=== PATIENT | male | born 1960 | race Caucasian/White ===

== ENCOUNTER → 2019-05-11 | Outpatient (CLI) | payer BC ==
--- NOTE | 2019-05-11 19:00 | ECHOF ---
Referral Reason:atypical chest pain R07.9 MEASUREMENTS -------- HEIGHT: 182.9 cm WEIGHT: 111.1 kg BP: 145/93 RVIDd: 3.4 cm (< 3.3) IVSd: 1.4 cm (0.6 - 1.1) LVIDd: 4.2 cm (3.9 - 5.3) LVPWd: 1.6 cm (0.6 - 1.1) IVSs: 1.8 cm LVIDs: 2.9 cm LVPWs: 2.1 cm LA Diam: 3.4 cm (2.7 - 3.8) LAESV Index (A-L): 20.39 ml/m Ao Diam: 4.2 cm (2.0 - 3.7) AV Cusp: 2.5 cm (1.5 - 2.6) MV EXCURSION: 19.913 mm (> 18.000) MV EF SLOPE: 110 mm/s (70 - 150) EPSS: 1.0 cm MV E Ezequiel: 0.75 m/s MV DecT: 330 ms MV A Ezequiel: 0.74 m/s MV E/A Ratio: 1.02 RAP: 5.00 mmHg RVSP: 28.48 mmHg FINDINGS -------- Sinus rhythm. This was a technically adequate study. The left ventricular size is normal. There is moderate concentric left ventricular hypertrophy. O verall left ventricular systolic function is normal with, an EF between 60 - 65 %. The right ventricle is mildly enlarged. Normal LA size by volume 22+/-6 ml/m2. The right atrium is normal in size. Interatrial and interventricular septum intact. The aortic valve is trileaflet and appears structurally normal. The mitral valve is normal. Mild tricuspid regurgitation present. Right ventricular systolic pressure is normal at < 35 mmHg. The pulmonic valve was not well visualized. The aortic root is dilated measuring 4.2cm. Normal inferior vena cava with normal inspiratory collapse consistent with estimated right atrial pre ssure of 5 mmHg. There is no pericardial effusion. CONCLUSIONS -------- 1. Sinus rhythm. 2. This was a technically adequate study. 3. The left ventricular size is normal. 4. There is moderate concentric left ventricular hypertrophy. 5. Overall left ventricular systolic function is normal with, an EF between 60 - 65 %. 6. The right ventricle is mildly enlarged. 7. Normal LA size by volume 22+/-6 ml/m2. 8. The right atrium is normal in size. 9. Interatrial and interventricular septum intact. 10. The aortic valve is trileaflet and appears structurally normal. 11. The mitral valve is normal. 12. Mild tricuspid regurgitation present. 13. Right ventricular systolic pressure is normal at < 35 mmHg. 14. The pulmonic valve was not well visualized. 15. The aortic root is dilated measuring 4.2cm. 16. Normal inferior vena cava with normal inspiratory collapse consistent with estimated right atrial pressure of 5 mmHg. 17. There is no pericardial effusion. PULP COOKER: Mckenzie Barrow RDCS
--- NOTE | 2019-05-11 20:17 | EST ---
EXERCISE STRESS DATE OF SERVICE: 05/11/2019. REFERRING DOCTOR: Dr. Hamilton. INDICATION: Chest pain. AGE: 58 SEX: M HT: 6' WT: 245 lbs PROTOCOL: Jian Protocol. STAGE: III DURATION OF EXERCISE: 10 minutes HEART RATE REST: 68 BLOOD PRESSURE REST: 145/93 MAXIMUM HEART RATE ACHIEVED: 140 MAXIMUM BLOOD PRESSURE: 220/93 85% MPHR: 139 100% MPHR: 163 METS: 11.7 CLINICAL INFORMATION: Shortness of breath. STRESS DATA: Heart rate is 68, pressure is 145/93 mmHg. Baseline EKG showed sinus mechanism. The patient exercised on the treadmill according to Jian protocol for a total of 10 minutes and achieved 11.7 METS. Max heart rate was 140 which is about 86% of maximum predicted heart rate. Maximum blood pressure is 220/93 mmHg. Clinically the patient developed shortness of breath in response to exercise. The EKG showed about 0.[address]-segment changes. CONCLUSION: 1. Excellent exercise tolerance. 2. Mild EKG changes in response to exercise. MMODL / IJN: [id number] /
== END | disposition home or self-care (01) ==
LOC: RADNMMAIN 10:29
PROVIDERS: ATTEND Family Medicine
DX: I34.0 Nonrheumatic mitral (valve) insufficiency (principal); R94.39 Abnormal result of other cardiovascular function study
CPT/HCPCS: 93017; 93306

== ENCOUNTER 2022-08-30 18:37 | Emergency (ER) | payer BC ==
[2022-08-30 18:44] VITALS: TEMP 97.6
--- NOTE | 2022-08-30 19:36 | US ---
EXAMINATION TYPE: US venous doppler duplex LE RT DATE OF EXAM: 08/30/2022 6:56 PM COMPARISON: NONE CLINICAL HISTORY: posterior thigh pain. Right posterior thigh pain x 3 hours. No hx of DVT, not on bl ood thinners SIDE PERFORMED: Right TECHNIQUE: The lower extremity deep venous system is examined utilizing real time linear array sonog margarito with graded compression, doppler sonography and color-flow sonography. VESSELS IMAGED: Common Femoral Vein Deep Femoral Vein Greater Saphenous Vein * Femoral Vein Popliteal Vein Small Saphenous Vein * Proximal Calf Veins (* superficial vessels) Right Leg: Negative for DVT Grayscale, color doppler, spectral doppler imaging performed of the deep veins of the right lower ext remity. There is normal flow, compressibility, vascular waveforms. IMPRESSION: No ultrasound evidence for acute DVT in the right lower extremity.
--- NOTE | 2022-08-30 19:43 | ED ---
General Adult HPI - General Chief complaint: Recheck/Abnormal Lab/Rx Stated complaint: Leg Pain Time Seen by Provider: 08/30/22 18:45 Source: patient, police Mode of arrival: EMS - History of Present Illness Initial comments: 62-year-old male with past medical history of sciatica is brought into the emergency department by police. 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 It caused him to have a significant irritation of the sciatic nerve on the right. He decided to pull off onto a dirt road and get out and trying structures leg against the car. When he didn't have any relief he laid on the roadway. Police were alerted as there was potentially an unresponsive male on the side of the road. When they got to the patient he was reporting to his leg pain but he also appeared visibly intoxicated. They did get a bat on the patient and it was 0.24. They wanted to do a wart blood drawn the patient was agreeable to being transported to the hospital for this. Patient admits to a history of sciatica. Normally takes Motrin and Tylenol. Denies any trauma. States that his pain has been going on for the past 20 years however is worse today. Denies calf pain or swelling. No history of DVT or PE. No chest pain or shortness of breath. No other alleviating, analytical tech modifying factors - Related Data Previous Rx's Medication Instructions Recorded predniSONE [Deltasone] 20 mg PO BID #10 tab 08/30/22 Allergies Allergy/AdvReac Type Severity Reaction Status Date / Time No Known Allergies Allergy Verified 08/30/22 18:44 Review of Systems ROS Statement: Those systems with pertinent positive or pertinent negative responses have been documented in the HPI. ROS Other: All systems not noted in ROS Statement are negative. Past Medical History Additional Past Medical History / Comment(s): siatic nerve pain Past Surgical History: No Surgical Hx Reported Past Psychological History: No Psychological Hx Reported Smoking Status: Never smoker Past Drug Use History: None Reported General Exam General appearance: alert, in no apparent distress Head exam: Present: atraumatic, normocephalic, normal inspection Eye exam: Present: normal appearance, PERRL, EOMI. Absent: scleral icterus, conjunctival injection, periorbital swelling ENT exam: Present: normal exam, mucous membranes moist Neck exam: Present: normal inspection. Absent: tenderness, meningismus, lymphadenopathy Respiratory exam: Present: normal lung sounds bilaterally. Absent: respiratory distress, wheezes, rales, rhonchi, stridor Cardiovascular Exam: Present: regular rate, normal rhythm, normal heart sounds. Absent: systolic murmur, diastolic murmur, rubs, gallop, clicks GI/Abdominal exam: Present: soft, normal bowel sounds. Absent: distended, tenderness, guarding, rebound, rigid Extremities exam: Present: normal inspection, full ROM, normal capillary refill. Absent: tenderness, pedal edema, joint swelling, calf tenderness Back exam: Present: normal inspection Neurological exam: Present: alert, oriented X3, CN II-XII intact Psychiatric exam: Present: normal affect, normal mood Skin exam: Present: warm, dry, intact, normal color. Absent: rash Course Vital Signs 08/30/22 08/30/22 18:41 20:12 Temperature 97.6 F Pulse Rate 74 78 Respiratory 16 18 Rate Blood Pressure 158/84 152/87 O2 Sat by Pulse 96 96 Oximetry Medical Decision Making - Medical Decision Making Was pt. sent in by a medical professional or institution (, PA, FOOTBALL PAD REPAIRER, urgent care, hospital, or jail...) When possible be specific @ -No Did you speak to anyone other than the patient for history (EMS, parent, family, police, friend...)? What history was obtained from this source @ -Police who brought patient in Did you review nursing and triage notes (agree or disagree)? Why? @ -I reviewed and agree with nursing and triage notes Were old charts reviewed (outside hosp., previous admission, EMS record, old EKG, old radiological studies, urgent care reports/EKG's, jail records)? Report findings @ -No Differential Diagnosis (chest pain, altered mental status, abdominal pain women, abdominal pain men, vaginal bleeding, weakness, fever, dyspnea, syncope, headache, dizziness, GI bleed, back pain, seizure, CVA, palpatations, mental health, musculoskeletal)? @ -sciatica, lumbar radiculopathy, compression fracture EKG interpreted by me (3pts min.). @ -None done X-rays interpreted by me (1pt min.). @ -None done CT interpreted by me (1pt min.). @ -None done U/S interpreted by me (1pt. min.). @ -yes What testing was considered but not performed or refused? (CT, X-rays, U/S, labs)? Why? @ -None What meds were considered but not given or refused? Why? @ -None Did you discuss the management of the patient with other professionals (professionals i.e. , PA, FOOTBALL PAD REPAIRER, lab, RT, psych nurse, social worker assistant, colorist photography, teacher, front desk officer, caser)? Give summary @ -No Was smoking cessation discussed for >3mins.? @ -No Was critical care preformed (if so, how long)? @ -No Were there social determinants of health that impacted care today? How? (Homelessness, low income, unemployed, alcoholism, drug addiction, transportation, low edu. Level, literacy, decrease access to med. care, detention, rehab)? @ -No Was there de-escalation of care discussed even if they declined (Discuss DNR or withdrawal of care, Hospice)? DNR status @ -No What co-morbidities impacted this encounter? (DM, HTN, Smoking, COPD, CAD, Cancer, CVA, ARF, Chemo, Hep., AIDS, mental health diagnosis, sleep apnea, morbid obesity)? @ -None Was patient admitted / discharged? Hospital course, mention meds given and route, prescriptions, significant lab abnormalities, going to OR and other pertinent info. @ -On arrival patient is placed into room 2. Thorough history and physical exam was performed. Warm blood draw is obtained. Ultrasound is performed as the patient is reporting posterior thigh pain which is negative for DVT. Patient is given a dose of Toradol. Discuss treatment options. He will be placed on steroids in the outpatient setting. Instructed not to drink or use NSAIDs while on the steroids. Patient is aware of this. His friend is present to the emergency department to pick him up. Patient discharged in stable condition Undiagnosed new problem with uncertain prognosis? @ -No Drug Therapy requiring intensive monitoring for toxicity (Heparin, Nitro, Insulin, Cardizem)? @ -No Were any procedures done? @ -No Diagnosis/symptom? @ -acute right leg pain, acute lumbar radiculopathy, alcohol intoxication Acute, or Chronic, or Acute on Chronic? @ -acute on chronic Uncomplicated (without systemic symptoms) or Complicated (systemic symptoms)? @ -complicated Side effects of treatment? @ -Allergic reaction, sedation Exacerbation, Progression, or Severe Exacerbation? @ -No Poses a threat to life or bodily function? How? (Chest pain, [place], DC, pneumonia, PE, COPD, DKA, ARF, appy, cholecystitis, CVA, Diverticulitis, Homicidal, Suicidal, threat to staff... and all critical care pts) @ -No Disposition Clinical Impression: Thigh pain, Sciatica Disposition: HOME SELF-CARE Condition: Stable Instructions (If sedation given, give patient instructions): Sciatica (ED) Additional Instructions: Please take the steroids as directed. Do not drink alcohol or take Motrin products while on the steroids. Return for any new or worsening symptoms Prescriptions: predniSONE [Deltasone] 20 mg PO BID #10 tab Is patient prescribed a controlled substance at d/c from ED?: No Referrals: Ky Hamilton DO [Primary Care Provider] - 1-2 days Time of Disposition: 19:43
[2022-08-30] MEDS ORDERED: KETOROLAC 15 MG/ML 1 ML VIAL IVP STA (19:46)
[2022-08-30] MEDS ORDERED: KETOROLAC 15 MG/ML 1 ML VIAL IM STA (20:07)
[2022-08-30 20:14] VITALS: BP 152/87; PULSE 78; RESP 18
== END 2022-08-30 20:13 | disposition home or self-care (01) ==
LOC: EC 18:37
DX: M54.30 Sciatica, unspecified side (principal)
CPT/HCPCS: 93971; 99284; 96372; J1885

== ENCOUNTER → 2023-07-23 | Outpatient (CLI) | payer OTHER ==
--- NOTE | 2023-07-23 21:06 | XR ---
EXAMINATION TYPE: XR shoulder complete 3 views RT, XR lumbosacral spine 5 views DATE OF EXAM: 07/23/2023 Comparison: None Clinical History: 62-year-old male M54.50 LOW BACK PAIN, M25.511 PAIN IN RIGHT SHOULDER Findings: Right shoulder: AC joint appears congruent and intact with preserved joint space. Subacromial space is preserved. Sli ght sclerosis of the greater tuberosity. No tendinous or bursal calcifications. No acute fracture, gallagher bluxation, dislocation. Lumbar spine: 5 lumbar type vertebral bodies. Facet arthropathy mid to lower lumbar spine. Mild degenerative disc d isease throughout the lumbar spine with suggestion of disc bulging. Additional endplate spondylosis v isualized lower thoracic spine. Vertebral body heights are preserved and alignment is maintained. Impression: 1. Right shoulder: Slight sclerosis of the greater tuberosity may reflect chronic rotator cuff tendin opathy. Otherwise, no acute osseous abnormality seen. 2. Lumbar spine: Mild multilevel degenerative disc disease. Hypertrophic facet arthropathy mid to low er lumbar spine. No vertebral compression collapse or malalignment.
== END | disposition home or self-care (01) ==
LOC: RADXRMAIN 10:31
PROVIDERS: ATTEND Family Medicine
DX: M51.36 Other intervertebral disc degeneration, lumbar region (principal); M47.816 Spondylosis without myelopathy or radiculopathy, lumbar region; M25.811 Other specified joint disorders, right shoulder
CPT/HCPCS: 72110

== ENCOUNTER → 2023-09-27 | Day surgery (SDC) | payer OTHER ==
[2023-09-26 10:08] VITALS: BMI 31.8
[~2023-09-27] MED LIST: LIDOCAINE 1% (10MG/ML) FOR IV START INTRADERMA PRN; PROPOFOL 10 MG/ML 20 ML VIAL IV ONE
[2023-09-27] MEDS: LACTATED RINGERS 1,000 ML IV SCH (12:55)
[2023-09-27 14:01] VITALS: RESP 16; TEMP 98.2
--- NOTE | 2023-09-27 14:37 | P.PCN ---
Date of Procedure: 09/27/23 Procedure(s) Performed: BRIEF HISTORY: Patient is a 63-year-old pleasant male scheduled for an elective colonoscopy as a part of screening for colon cancer/positive Cologuard PROCEDURE PERFORMED: Colonoscopy with snare polypectomy. PREOPERATIVE DIAGNOSIS: Screening for colon cancer/positive:. IV sedation per Anesthesia. PROCEDURE: After informed consent was obtained, the patient, was brought into the endoscopy unit. IV sedation was administered by Anesthesia under continuous monitoring. Digital rectal examination was normal. Initially the Olympus CF-160 flexible video colonoscope was then inserted in the rectum, gradually advanced into the cecum without any difficulty. Careful examination was performed as the scope was gradually being withdrawn. Ileocecal valve and the appendiceal orifice were visualized and appeared normal. Prep was excellent. Mucosa of the cecum, ascending colon, appeared normal. In the hepatic flexure there was a 6 mm to 8 mm polyp that was removed by snare polypectomy. In the transverse colon there was a 3 mm and 1 cm polyp removed by snare polypectomy. Rest of the transverse colon, descending colon, sigmoid colon, and rectum appeared normal. Retroflexion was performed in the rectum and no lesions were seen. The patient tolerated the procedure well. IMPRESSION: 6 mm and 8 mm hepatic Exa polyp status post polypectomy 3 mm and 1 cm transverse colon polyp status post polypectomy RECOMMENDATIONS: Findings of this examination were discussed with the patient as well as her family. He was advised to follow-up with the biopsy results. If the biopsy reveals adenoma he can have repeat colonoscopy in 3 years..
[2023-09-27 15:27] VITALS: BP 146/84; PULSE 58
== END ==
LOC: ORWHC2ENDO 11:32
PROVIDERS: ATTEND Internal Medicine Gastroenterology
DX: D12.3 Benign neoplasm of transverse colon (principal); Z79.899 Other long term (current) drug therapy; Z98.890 Other specified postprocedural states
CPT/HCPCS: 88305; 45385; J2704